=== PATIENT | male | born 1975 | race Caucasian/White ===

== ENCOUNTER 2016-11-11 09:39 | Emergency (ER) | payer MEDICAID, OTHER ==
[~2016-11-11] VITALS: Ht 182.9 cm; Wt 56.2 kg
[2016-11-11] MEDS ORDERED: SODIUM CHLORIDE 0.9% 1,000ML IVBOLUS ONE (11:00)
[2016-11-11] MEDS ORDERED: SODIUM CHLORIDE FLUSH 10ML SYR IVF ONE (11:00)
[2016-11-11] MEDS ORDERED: ONDANSETRON 2MG/ML, 2ML IVPush ONE (11:00)
[2016-11-11] MEDS ORDERED: MORPHINE SULFATE 4 MG/ML, 1ML IVPush PRN (11:00)
[2016-11-11 11:22] LABS: HEMATOCRIT 47.2 % (39.2-51.8); WHITE BLOOD COUNT 8.4 x10^3/uL (3.4-10)
[2016-11-11 11:28] LABS: BLOOD UREA NITROGEN 10 mg/dL (7-18)
[2016-11-11 11:31] LABS: ASPARTATE AMINO TRANSFERASE 24 U/L (15-37)
[2016-11-11] MEDS ORDERED: ONDANSETRON 2MG/ML, 2ML ONE (11:32)
[2016-11-11] MEDS ORDERED: MORPHINE SULFATE 4 MG/ML, 1ML ONE (11:32)
[2016-11-11 11:37] VITALS: BP 120/89
[2016-11-11] MEDS ORDERED: OMNIPAQUE 350 MG/ML, 100ML BOTTLE ONE (12:14)
== END 2016-11-11 12:47 | disposition home or self-care (01) ==
LOC: ED 10:42
DX: R10.84 Generalized abdominal pain (principal); R19.7 Diarrhea, unspecified; R11.0 Nausea; F17.200 Nicotine dependence, unspecified, uncomplicated
CPT/HCPCS: 36415; 74177; 80053; 81001; 83690; 85025; 87086; 96361; 96374; 96375; 99285; J2405; J7030; Q9967